=== PATIENT | male | born 1940 | race Caucasian/White ===

== ENCOUNTER 2018-05-23 11:12 | Emergency (ER) | payer OTHER ==
--- NOTE | 2018-05-23 11:47 | EDPHY ---
HPI/HX/ROS/PE/MDM Narrative: CHIEF COMPLAINT: "I just felt seriously dizzy" HPI: This patient is a healthy 77-year-old male. He arrives complaining of a sensation of dizziness and imbalance which began about 90 minutes prior to arrival. This feels as if he was on a boat. He tried to sit and symptoms resolved somewhat, but when he got up to walk again, he had a similar sensation of imbalance. The patient returned last night from a trip to [place], and when he got up this morning he was feeling well and went for a run as usual. Later he went to a bagel shop and his symptoms developed rather suddenly. He continues to feel as if he is on a boat. He did take two ASA this morning following the onset of symptoms. Denies any visual changes. No falls or trauma. He notes his was recently ill with fevers and chills. REVIEW OF SYSTEMS: A comprehensive 10 system review of systems is otherwise negative aside from elements mentioned in the history of present illness and medical decision making. PMH: BPH (finasteride). SOCIAL HISTORY: . Employed. Lives in [place]. PHYSICAL EXAM: General:Patient is alert, in no acute distress. ENT:Eyes are normal to inspection. ENT inspection normal. Neck: Normal inspection. Full range of motion. Respiratory:No respiratory distress. Breath sounds normal bilaterally. Cardiovascular: Regular rate and rhythm. Strong peripheral pulses. Normal cap refill. Abdomen:The abdomen is nontender to palpation. There are no peritoneal signs. There are normal bowel sounds. Back: Normal to inspection. No tenderness to palpation. Skin: Normal color. No rash. Warm and dry. Extremities: Normal appearance. Full range of motion. Neuro: Oriented x3. Normal motor function. Normal sensory function. No dysdiadochokinesis. No pronator drift. Normal [id number]. Normal heel-to- esposito. ED Course: This 77 y/o male presents with a sensation of dizziness and imbalance as if he is on a boat. He is neurologically intact on exam. I have low suspicion for [employer] etiology such as cerebellar stroke at this time. Plan for EKG, labs including CBC, chemistries, POC troponin. Plan to administer 50mg PO Meclizine for symptom relief. EKG was ordered and interpreted by myself. Please see [facility] system for official reading. EKG is abnormal - there is an incomplete RBBB as well as an abnormal ST segment in multiple leads. However, the ST segment is concave and the patient has absolutely no complaint of chest pain or SOB. He has no history of cardiac risk factors and was able to go on a run earlier this morning without any ill effects. I do not think this represents acute ischemia. Laboratory studies completely unremarkable. Troponin negative. 13:00 Reassessed patient. Discussed laboratory results. The patient is feeling better following Meclizine administration. Plan to discharge home in good condition with referral to ENT. Follow up and return precautions discussed. He is comfortable with this plan. MDM: This patient presents with classic symptoms of BPPV. There are no cerebellar signs on detailed exam to suggest cerebellar infarct or ischemic process. His ECG is slightly abnormal but in the absence of chest pain and clear description of symptoms as vertiginous rather than lightheadedness etc., I doubt this is related to his symptoms. I have contacted the patient by phone after his visit to see how he is doing and have informed him of this abnormality and recommended he follow-up with his PCP and/or cardiology within the next week. - Data Points Laboratory Results: Laboratory Results 05/23/18 12:05 05/23/18 12:05 Medications Given: Discontinued Medications Meclizine HCl (Meclizine Hcl) 50 mg PO EDNOW ONE Stop: 05/23/18 12:14 Last Admin: 05/23/18 12:30 Dose: 50 mg Point of Care Test Results: Chemistry 05/23/18 12:07 POC Troponin I 0.01 ng/mL ng/mL (0.00-0.08) General Time Seen by Provider: 05/23/18 11:43 Initial Vital Signs: Initial Vital Signs Temperature (C) 36.8 C 05/23/18 11:19 Heart Rate 60 05/23/18 11:19 Respiratory Rate 16 05/23/18 11:19 Blood Pressure 126/73 H 05/23/18 11:19 O2 Sat (%) 97 05/23/18 11:19 O2 Delivery Mode Room Air Allergies/Adverse Reactions: No Known Allergies Allergy (Unverified 05/23/18 11:19) Home Medications: Medication Instructions Recorded Finasteride 05/23/18 Meclizine HCl [Meclizine HCl 25 mg 25 mg PO BID PRN #14 tab 05/23/18 (RX,OTC)] Departure - Departure Disposition: Home, Routine, Self-Care Clinical Impression: BPPV (benign paroxysmal positional vertigo) Condition: Good Instructions: Benign Paroxysmal Positional Vertigo (ED) Additional Instructions: Use meclizine as prescribed. Drink plenty of fluids. Return to the emergency department immediately for headache, numbness, weakness , severe vertigo, neck pain, inability to tolerate fluids by mouth or other worsening of condition. Follow up with Ear, Nose, and Throat tomorrow as we discussed. . Referrals: Bigg Vogt DO [Primary Care Provider] - As per Instructions Felipe Jo MD [Medical Doctor] - As per Instructions Prescriptions: Meclizine HCl [Meclizine HCl 25 mg (RX,OTC)] 25 mg PO BID PRN #14 tab PRN Reason: vertigo Report Scribed for: Ceasar Jimenez Report Scribed by: Gali Burch Date of Report: 05/23/18 Time of Report: 11:52 Physician Review and Approval Statement: Portions of this note were transcribed by an ED scribe. I personally performed the history, physical exam, and medical decision making; and confirm the accuracy of the information in the transcribed note.
[2018-05-23] MEDS ORDERED: MECLIZINE HCL 25 MG TAB PO ONE (12:13)
[2018-05-23 12:17] LABS: PLATELET COUNT 173 10^3/uL (150-400)
[2018-05-23 13:10] VITALS: BP 121/74
--- NOTE | 2018-05-23 15:18 | CPEKG ---
Test Reason : OPEN Blood Pressure : / mmHG Vent. Rate : 061 BPM Atrial Rate : 062 BPM P-R Int : 166 ms QRS Dur : 123 ms QT Int : 441 ms P-R-T Axes : 084 084 063 degrees QTc Int : 445 ms Sinus rhythm Right bundle branch block ST elevation, consider inferior injury Confirmed by Ceasar Jimenez ([id number]) on 05/23/2018 3:17:38 PM Referred By: Ceasar Jimenez Confirmed By:Ceasar Jimenez
== END 2018-05-23 13:10 | disposition home or self-care (01) ==
DX: H81.10 Benign paroxysmal vertigo, unspecified ear (principal)
CPT/HCPCS: 84484-ER